=== PATIENT | male | born 1995 | race Caucasian/White ===

== ENCOUNTER 2020-04-16 17:39 | Emergency (ER) | payer OTHER ==
[~2020-04-16] VITALS: Ht 172.7 cm; Wt 74.9 kg
[2020-04-16] MEDS ORDERED: IBUPROFEN 800 MG TAB PO ONE (18:30)
--- NOTE | 2020-04-16 18:44 | REPVR ---
PROCEDURE INFORMATION: Exam: XR Left Shoulder Exam date and time: 04/16/2020 6:27 PM Age: 25 years old Clinical indication: Pain; Shoulder; Left; Additional info: L shoulder pain, felt a pop TECHNIQUE: Imaging protocol: XR Left shoulder. Views: 2 or more views. COMPARISON: No relevant prior studies available. FINDINGS: Bones/joints: Normal. Soft tissues: Normal. IMPRESSION: No acute findings. Electronically signed by: Caroline Wang On 04/16/2020 18:43:41 PM
[2020-04-16 19:22] VITALS: BP 130/77
== END 2020-04-16 19:26 | disposition home or self-care (01) ==
LOC: M ED 17:39
DX: S46.912A Strain of unspecified muscle, fascia and tendon at shoulder and upper arm level, left arm, initial encounter (principal); F17.200 Nicotine dependence, unspecified, uncomplicated; Y99.1 Military activity; Y92.9 Unspecified place or not applicable; Y93.9 Activity, unspecified